=== PATIENT | female | born 1975 | race Two or more races ===

== ENCOUNTER 2017-11-14 08:54 | Outpatient (CLI) | payer OTHER ==
[~2017-11-14 08:54] MED LIST: ANTIVERT12.5 MG PO
== END 2017-11-14 09:00 | disposition home or self-care (01) ==
LOC: NUCLEAR 08:54
DX: M19.90 Unspecified osteoarthritis, unspecified site (principal); M12.9 Arthropathy, unspecified
CPT/HCPCS: 78315; 78306; A9503

== ENCOUNTER 2019-09-01 12:17 | Outpatient (CLI) | payer OTHER ==
[~2019-09-01] VITALS: Ht 177.8 cm; Wt 73.9 kg
[2019-09-01] MEDS ORDERED: FLONASE16 GM NASAL (13:14)
[2019-09-01] MEDS ORDERED: MECLIZINE HCL12.5 MG PO (13:15)
== END 2019-09-01 14:25 | disposition home or self-care (01) ==
LOC: OFIC 805 12:17
PROVIDERS: ATTEND Otolaryngology
DX: H92.01 Otalgia, right ear (principal); R42 Dizziness and giddiness; H61.23 Impacted cerumen, bilateral